=== PATIENT | male | born 1945 | race Caucasian/White ===

== ENCOUNTER → 2017-06-20 | Outpatient (CLI) | payer OTHER ==
[~2017-06-20] MED LIST: FLEXERIL10 MG PO; LO-DOSE ASPIRIN81 M1 PO; NAPROXEN500 MG PO; PEN-VEE K,VEET500 MG PO; PRAVASTATIN SOD40 MG PO; TRAMADOL HCL50 MG PO
== END | disposition home or self-care (01) ==
LOC: OPR 08:33 → EDSTATUS 09:00
PROC: 0QB23ZX Excision of Right Pelvic Bone, Percutaneous Approach, Diagnostic (ICD-10-PCS; principal; 2017-06-20)
DX: C79.51 Secondary malignant neoplasm of bone (principal); N40.0 Benign prostatic hyperplasia without lower urinary tract symptoms
CPT/HCPCS: 77012; 88305; 88341 TC; 88342 TC; J3010

== ENCOUNTER 2017-08-18 17:02 | Inpatient (IN) | payer OTHER ==
[~2017-08-18] VITALS: Ht 182.9 cm; Wt 63.7 kg
[2017-08-18 18:30] LABS: HEMATOCRIT 36.1 % (38.0-50.0); HEMOGLOBIN 11.8 G/DL (12.5-16.6); MCH 29.5 PG (29.0-34.0); MCHC 32.7 G/DL (30.0-36.0); MCV 90.3 FL (86-99); PLATELET COUNT 251 K/uL (156-360); RBC DIS.WIDTH-CV 13.3 % (11.8-14.6); RBC DIS.WIDTH-SD 43.5 % (39-53); WHITE BLOOD COUNT 3.6 K/uL (4.1-10.2)
[2017-08-18 18:39] LABS: ALBUMIN 3.3 g/dL (3.2-4.8); CHLORIDE 103 mEq/L (99-109); SODIUM 136 mEq/L (136-147)
[2017-08-18 18:41] LABS: GLUCOSE 97 mg/dL (70-99); TOTAL PROTEIN 6.7 g/dL (6.4-8.3)
[2017-08-18 18:43] LABS: TOTAL BILIRUBIN 0.3 mg/dL (0.0-1.0)
[2017-08-18 18:45] LABS: ALKALINE PHOSPHATASE 111 IU/L (3-129); CREATININE 0.7 mg/dL (0.6-1.3); GFR ESTIMATE (CALCULATED) > 59 mL/min/ (58.99-99999)
[2017-08-18 18:46] LABS: UREA NITROGEN (BUN) 21 mg/dL (9-23)
[2017-08-18 18:47] LABS: AST (GOT) 21 IU/L (2-34)
[2017-08-18 18:48] LABS: ALT (GPT) 62 IU/L (3-49); LIPASE 2 U/L (1.0-51.0)
[2017-08-18 22:20] LABS: APPEARANCE SL.HAZY ((CLEAR)); BILIRUBIN NEGATIVE; BLOOD NEGATIVE; COLOR YELLOW ((YELLOW)); GLUCOSE (STRIP) NEGATIVE; KETONES 20; LEUKOCYTES NEGATIVE; NITRITE NEGATIVE; PROTEIN (STRIP) NEGATIVE; SPECIFIC GRAVITY 1.038 (1.000-1.030); UROBILINOGEN 0.2 MG/DL (0.2-1.0)
[2017-08-18 22:34] LABS: BACTERIA NONE SEEN /HPF; EPITHELIAL CELLS RARE /HPF; MUCUS TRACE /LPF; RED BLOOD CELLS 0-5 /HPF (0-5); UCUL ADDED? NO; WHITE BLOOD CELLS 0-5 /HPF (0-5)
[2017-08-18] MEDS ORDERED: ROXICODONE5 MG PO (22:48)
[2017-08-18] MEDS ORDERED: NEURONTIN300 MG PO (22:48)
[2017-08-18] MEDS ORDERED: DURAGESIC25 MCG TD (22:48)
[2017-08-18] MEDS ORDERED: COMPAZINE10 MG PO (22:49)
[2017-08-19 00:27] VITALS: BP 134/68
[2017-08-19 06:08] VITALS: BP 102/59
[2017-08-19 06:46] LABS: HEMATOCRIT 33.9 % (38.0-50.0); MCH 29.6 PG (29.0-34.0); MCHC 32.4 G/DL (30.0-36.0); MCV 91.1 FL (86-99); PLATELET COUNT 243 K/uL (156-360); RBC DIS.WIDTH-CV 13.2 % (11.8-14.6); RBC DIS.WIDTH-SD 43.6 % (39-53); RED BLOOD COUNT 3.72 M/uL (4.00-5.50); WHITE BLOOD COUNT 3.2 K/uL (4.1-10.2)
[2017-08-19 07:10] LABS: CHLORIDE 102 MEQ/L (99-109); POTASSIUM 4.3 MEQ/L (3.7-5.4); SODIUM 137 MEQ/L (136-147)
[2017-08-19 07:16] LABS: CREATININE 0.5 MG/DL (0.6-1.3); GFR ESTIMATE (CALCULATED) > 59 mL/min/ (58.99-99999); GLUCOSE 97 mg/dL (70-99); UREA NITROGEN (BUN) 17 mg/dL (9-23)
[2017-08-19 09:58] LABS: ALBUMIN 3.1 G/DL (3.2-4.8); ALKALINE PHOSPHATASE 90 IU/L (3-129); ALT (GPT) 36 IU/L (3-49); AST (GOT) 13 IU/L (2-34); DIRECT BILIRUBIN 0.2 mg/dL (0.0-0.3); TOTAL BILIRUBIN 0.4 MG/DL (0.0-1.0); TOTAL PROTEIN 6.3 G/DL (6.4-8.3)
[2017-08-19 11:35] VITALS: BP 101/57
[2017-08-19 16:00] VITALS: BP 152/75
[2017-08-19 18:55] VITALS: BP 117/70
[2017-08-20 00:53] VITALS: BP 117/60
[2017-08-20 03:52] VITALS: BP 120/68
[2017-08-20 05:37] LABS: HEMATOCRIT 31.3 % (38.0-50.0); HEMOGLOBIN 10.3 G/DL (12.5-16.6); MCH 29.2 PG (29.0-34.0); MCHC 32.9 G/DL (30.0-36.0); MCV 88.7 FL (86-99); PLATELET COUNT 233 K/uL (156-360); RBC DIS.WIDTH-CV 13.1 % (11.8-14.6); RBC DIS.WIDTH-SD 42.6 % (39-53); RED BLOOD COUNT 3.53 M/uL (4.00-5.50); WHITE BLOOD COUNT 3.8 K/uL (4.1-10.2)
[2017-08-20 06:11] LABS: ABS NEUTROPHIL COUNT 2.9; BAND NEUTROPHILS 6.1 % (0-8.0); EOSINOPHIL ABS CT 0; HELMET CELLS 1+; HEMATOLOGY COMMENT 1 SN; HYPOCHROMASIA 1+; LYMPHOCYTES 10.4 % (15.0-45.0); MONOCYTES 10.4 % (0-9.0); PLAT.SUFFICIENCY ADEQUATE; POLYCHROMASIA 1+; SEG.NEUTROPHILS 69.6 % (46.0-76.0)
[2017-08-20 06:29] LABS: CHLORIDE 99 MEQ/L (99-109); CREATININE 0.5 MG/DL (0.6-1.3); GFR ESTIMATE (CALCULATED) > 59 mL/min/ (58.99-99999); GLUCOSE 126 mg/dL (70-99); MAGNESIUM 1.7 mg/dl (1.3-2.7); POTASSIUM 4.3 MEQ/L (3.7-5.4); SODIUM 133 MEQ/L (136-147); UREA NITROGEN (BUN) 14 mg/dL (9-23)
[2017-08-20 08:23] VITALS: BP 112/65
[2017-08-20 12:02] VITALS: BP 121/76
[2017-08-20 16:46] VITALS: BP 137/74
[2017-08-20 17:20] LABS: INTER. NORMALIZED RATIO 1.3
[2017-08-20 17:23] LABS: PTT 26.9 SEC (25-37)
[2017-08-20 17:35] LABS: ALKALINE PHOSPHATASE 77 IU/L (3-129); ALT (GPT) 24 IU/L (3-49); AST (GOT) 9 IU/L (2-34); CHLORIDE 100 MEQ/L (99-109); CREATININE 0.5 MG/DL (0.6-1.3); GFR ESTIMATE (CALCULATED) > 59 mL/min/ (58.99-99999); GLUCOSE 124 mg/dL (70-99); POTASSIUM 4.2 MEQ/L (3.7-5.4); SODIUM 133 MEQ/L (136-147); TOTAL PROTEIN 6.1 G/DL (6.4-8.3); UREA NITROGEN (BUN) 16 mg/dL (9-23)
[2017-08-20 17:49] LABS: TOTAL BILIRUBIN 0.3 MG/DL (0.0-1.0)
[2017-08-20 18:16] LABS: CARCINOEMBR.ANTIGEN 365.3 NG/ML
[2017-08-20 19:00] VITALS: BP 149/67
[2017-08-21] VITALS: BP 108/60
[2017-08-21 03:00] VITALS: BP 133/68
[2017-08-21 08:05] LABS: HEMATOCRIT 32.1 % (38.0-50.0); HEMOGLOBIN 10.4 G/DL (12.5-16.6); MCH 28.7 PG (29.0-34.0); MCHC 32.4 G/DL (30.0-36.0); MCV 88.7 FL (86-99); PLATELET COUNT 241 K/uL (156-360); RED BLOOD COUNT 3.62 M/uL (4.00-5.50); WHITE BLOOD COUNT 4.2 K/uL (4.1-10.2)
[2017-08-21 08:16] VITALS: BP 125/70
[2017-08-21 08:49] LABS: ABS NEUTROPHIL COUNT 3.1; BAND NEUTROPHILS 3.6 % (0-8.0); EOSINOPHIL ABS CT 0; LYMPHOCYTES 11.6 % (15.0-45.0); METAMYELOCYTES 5.4 %; MONOCYTES 7.1 % (0-9.0); MYELOCYTES 1.8 %; NUCLEATED RBC'S 1.8; PLAT.SUFFICIENCY ADEQUATE; SEG.NEUTROPHILS 70.5 % (46.0-76.0); SMUDGE CELLS 4.5
[2017-08-21 08:52] LABS: ALBUMIN 2.6 G/DL (3.2-4.8); CHLORIDE 102 MEQ/L (99-109); CREATININE 0.5 MG/DL (0.6-1.3); GFR ESTIMATE (CALCULATED) > 59 mL/min/ (58.99-99999); GLUCOSE 112 mg/dL (70-99); PHOSPHORUS 2.9 mg/dL (2.5-4.9); POTASSIUM 4.3 MEQ/L (3.7-5.4); SODIUM 134 MEQ/L (136-147); UREA NITROGEN (BUN) 16 mg/dL (9-23)
[2017-08-21 11:59] VITALS: BP 134/69
[2017-08-21 16:19] VITALS: BP 154/78
[2017-08-21 20:00] VITALS: BP 144/74
[2017-08-22 01:39] VITALS: BP 130/71
[2017-08-22 04:46] VITALS: BP 111/59
[2017-08-22 07:15] VITALS: BP 138/65
[2017-08-22 09:44] VITALS: BP 148/70
[2017-08-22 12:00] VITALS: BP 144/82
[2017-08-22 15:47] VITALS: BP 122/63
[2017-08-22] MEDS ORDERED: DEXAMETHASONE4 MG PO (17:53)
[2017-08-22] MEDS ORDERED: [UNRECOGNIZED DRUG - OTHER] PO (18:49)
== END 2017-08-22 20:30 | disposition home or self-care (01) | DRG 948 ==
LOC: EME 17:02 → EDOF 23:29 → ENRESERV 23:31 → 5WEST 08-19 00:16
PROVIDERS: Hospitalist; Internal Medicine Gastroenterology; Physician Assistant; Physician Assistant Surgical
PROC: 0DBP8ZX Excision of Rectum, Via Natural or Artificial Opening Endoscopic, Diagnostic (ICD-10-PCS; principal; 2017-08-22)
DX: G89.3 Neoplasm related pain (acute) (chronic) (principal); C80.1 Malignant (primary) neoplasm, unspecified; C79.51 Secondary malignant neoplasm of bone; C78.7 Secondary malignant neoplasm of liver and intrahepatic bile duct; C78.00 Secondary malignant neoplasm of unspecified lung; C79.72 Secondary malignant neoplasm of left adrenal gland; C79.71 Secondary malignant neoplasm of right adrenal gland; C77.2 Secondary and unspecified malignant neoplasm of intra-abdominal lymph nodes; K62.1 Rectal polyp; K64.8 Other hemorrhoids; D64.9 Anemia, unspecified; K29.70 Gastritis, unspecified, without bleeding; K80.10 Calculus of gallbladder with chronic cholecystitis without obstruction; M19.90 Unspecified osteoarthritis, unspecified site; N40.0 Benign prostatic hyperplasia without lower urinary tract symptoms; R53.1 Weakness; R97.0 Elevated carcinoembryonic antigen [CEA]; Z68.1 Body mass index [BMI] 19.9 or less, adult; Z87.891 Personal history of nicotine dependence; Z92.3 Personal history of irradiation
CPT/HCPCS: 72158; 74177; 76705; 80048; 80053; 80069; 80076; 81003; 82378; 83690; 83735; 85025; 85027; 85610; 85730; 94799; 99281; 99285; G0103; G0378; J1100; J1170; J1644; J2270; J2405; J3010; J7030; J8540

== ENCOUNTER 2017-09-22 18:36 | Inpatient (IN) | payer OTHER ==
[~2017-09-22] VITALS: Ht 182.9 cm; Wt 61.5 kg
[~2017-09-22 18:36] MED LIST changes: +COMPAZINE10 MG PO; +DEXAMETHASONE4 MG PO; +DURAGESIC25 MCG TD; +NEURONTIN300 MG PO; +ROXICODONE5 MG PO; +[UNRECOGNIZED DRUG - OTHER] PO
[2017-09-22 19:44] LABS: PLATELET COUNT 328 K/uL (156-360)
[2017-09-22 19:52] LABS: CHLORIDE 96 mEq/L (99-109); POTASSIUM 4.2 mEq/L (3.7-5.4); SODIUM 134 mEq/L (136-147)
[2017-09-22 19:54] LABS: GLUCOSE 108 mg/dL (70-99); HEMATOCRIT 39.5 % (38.0-50.0); HEMOGLOBIN 13.1 G/DL (12.5-16.6); MCHC 33.2 G/DL (30.0-36.0); MCV 90.6 FL (86-99); RBC DIS.WIDTH-SD 49.6 % (39-53); RED BLOOD COUNT 4.36 M/uL (4.00-5.50)
[2017-09-22 19:58] LABS: CREATININE 0.6 mg/dL (0.6-1.3); GFR ESTIMATE (CALCULATED) > 59 mL/min/ (58.99-99999)
[2017-09-22 19:59] LABS: UREA NITROGEN (BUN) 22 mg/dL (9-23)
[2017-09-22 20:06] LABS: TROP-I INTERPRETATION NEGATIVE; TROPONIN-I < 0.01 ng/mL (0.0-0.30)
[2017-09-22] MEDS ORDERED: VITAMIN B-6100 MG PO (22:57)
[2017-09-22] MEDS ORDERED: VITAMIN B122500 MCG PO (22:59)
[2017-09-22] MEDS ORDERED: CALCIUM 500 MG1 EACH PO (23:00)
[2017-09-22] MEDS ORDERED: NYSTATIN100000 UN1 PO (23:03)
[2017-09-22] MEDS ORDERED: COMPAZINE10 MG PO (23:05)
[2017-09-22] MEDS ORDERED: ACID CONTROL150 MG PO (23:06)
[2017-09-22] MEDS ORDERED: MIRALAX17 GM PO (23:06)
[2017-09-22] MEDS ORDERED: CLARITIN,ALAVAR10 MG PO (23:08)
[2017-09-22] MEDS ORDERED: LIDOCAINE20 MG/1 M5 PO (23:17)
[2017-09-22] MEDS ORDERED: MAALOX ADVANCE355 ML PO (23:19)
[2017-09-23 01:03] LABS: TROP-I INTERPRETATION NEGATIVE; TROPONIN-I < 0.01 ng/mL (0.0-0.30)
[2017-09-23 03:59] LABS: HEMOGLOBIN 11.4 G/DL (12.5-16.6); MCH 30.2 PG (29.0-34.0); MCHC 33.5 G/DL (30.0-36.0); MCV 89.9 FL (86-99); PLATELET COUNT 272 K/uL (156-360); RBC DIS.WIDTH-CV 14.9 % (11.8-14.6); RBC DIS.WIDTH-SD 48.7 % (39-53); RED BLOOD COUNT 3.78 M/uL (4.00-5.50); WHITE BLOOD COUNT 27.2 K/uL (4.1-10.2)
[2017-09-23 04:19] LABS: TROP-I INTERPRETATION NEGATIVE; TROPONIN-I < 0.01 ng/mL (0.0-0.30)
[2017-09-23 04:44] LABS: ABS NEUTROPHIL COUNT 24.7; ANISOCYTOSIS 2+; ATYPICAL LYMPHOCYTE 1.8 %; BAND NEUTROPHILS 8.8 % (0-8.0); EOSINOPHIL ABS CT 0; HYPOCHROMASIA 1+; LYMPHOCYTES 5.3 % (15.0-45.0); MACROCYTES 1+; METAMYELOCYTES 0.4 %; MICROCYTOSIS 1+; MONOCYTES 1.7 % (0-9.0); PLAT.SUFFICIENCY ADEQUATE; POIKILOCYTOSIS 2+; SPHEROCYTES 1+
[2017-09-23 04:48] LABS: CHLORIDE 103 mEq/L (99-109); SODIUM 133 mEq/L (136-147)
[2017-09-23 04:49] LABS: GLUCOSE 88 mg/dL (70-99)
[2017-09-23 04:53] LABS: CREATININE 0.5 mg/dL (0.6-1.3); GFR ESTIMATE (CALCULATED) > 59 mL/min/ (58.99-99999)
[2017-09-23 04:54] LABS: UREA NITROGEN (BUN) 19 mg/dL (9-23)
[2017-09-23 12:00] VITALS: BP 100/66
[2017-09-23] MEDS ORDERED: LEVAQUIN750 MG PO (15:11)
[2017-09-23] MEDS ORDERED: AUGMENTIN875 MG PO (15:11)
[2017-09-23] MEDS ORDERED: PROTONIX40 MG PO (15:13)
== END 2017-09-23 16:23 | disposition home or self-care (01) | DRG 313 ==
LOC: EME 18:36 → EDOF 20:41 → ENRESERV 20:45 → EDOF 09-23 03:39 → ENRESERV 09-23 14:19 → EDOF 09-23 16:23
PROVIDERS: Internal Medicine
DX: R07.9 Chest pain, unspecified (principal); J18.9 Pneumonia, unspecified organism; R64 Cachexia; F11.20 Opioid dependence, uncomplicated; G89.29 Other chronic pain; Y95 Nosocomial condition; E86.0 Dehydration; K30 Functional dyspepsia; C80.1 Malignant (primary) neoplasm, unspecified; E27.9 Disorder of adrenal gland, unspecified; K64.8 Other hemorrhoids; Z85.46 Personal history of malignant neoplasm of prostate; Z92.3 Personal history of irradiation; Z87.891 Personal history of nicotine dependence; Z87.442 Personal history of urinary calculi; Z92.21 Personal history of antineoplastic chemotherapy
CPT/HCPCS: 71046; 71275; 80048; 83605; 84484; 85025; 85027; 87040; 93005; 99202; 99281; 99285; C9113; J0692; J0696; J1650; J2270; J3370; J7030